=== PATIENT | male | born 1990 | race Caucasian/White ===

== ENCOUNTER 2017-07-29 07:08 | Emergency (ER) | payer SELFPAY ==
[~2017-07-29] VITALS: Ht 172.7 cm; Wt 79.5 kg
[2017-07-29] MEDS ORDERED: DIPH,PERTUSS(ACELL),TET VAC/PF 0.5 ML IM-VACC ONE ×2 (07:40→08:00)
[2017-07-29] MEDS ORDERED: LIDOCAINE-MPF 2% ,5ML ONE (07:41)
[2017-07-29] MEDS ORDERED: LIDOCAINE-MPF 1%, 5ML INFIL ONE (08:00)
[2017-07-29] MEDS ORDERED: BACITRACIN ZINC OINT 500U/GM, 0.9 GM ONE (08:25)
== END 2017-07-29 09:58 | disposition home or self-care (01) ==
LOC: ED 09:50
DX: S61.511A Laceration without foreign body of right wrist, initial encounter (principal); F10.120 Alcohol abuse with intoxication, uncomplicated; W25.XXXA Contact with sharp glass, initial encounter; Y93.89 Activity, other specified; Y92.488 Other paved roadways as the place of occurrence of the external cause; Y99.8 Other external cause status
CPT/HCPCS: 12002; 90715; 96372

== ENCOUNTER 2019-05-28 18:48 | Emergency (ER) | payer MEDICAID, OTHER ==
[~2019-05-28] VITALS: Ht 182.9 cm; Wt 82.7 kg
[2019-05-28] MEDS ORDERED: FLUORESCEIN OPHTHALMIC 1 MG STRIP ONE ×2 (19:28→19:37)
[2019-05-28] MEDS ORDERED: PROPARACAINE OPHTH 0.5%, 15ML ONE (19:29)
[2019-05-28] MEDS ORDERED: PROPARACAINE OPHTH 0.5%, 15ML EACHEYE ONE (19:30)
[2019-05-28] MEDS ORDERED: FLUORESCEIN OPHTHALMIC 1 MG STRIP EACHEYE ONE (19:30)
[2019-05-28] MEDS ORDERED: TROPICAMIDE OPHTH 1%, 15ML OP ONE (20:30)
[2019-05-28] MEDS ORDERED: TROPICAMIDE 0.5% OP ONE (20:30)
[2019-05-28] MEDS ORDERED: PHENYLEPHRINE 10% EACHEYE ONE (20:30)
[2019-05-28] MEDS ORDERED: ACYCLOVIR 800 MG TABLET PO ONE (20:30)
[2019-05-29 00:10] VITALS: BP 117/88
== END 2019-05-29 00:12 | disposition home or self-care (01) ==
LOC: ED 23:59
DX: H57.11 Ocular pain, right eye (principal); B02.9 Zoster without complications; F17.210 Nicotine dependence, cigarettes, uncomplicated
CPT/HCPCS: 99283